=== PATIENT | female | born 1965 | race Caucasian/White ===

== ENCOUNTER 2020-07-29 16:01 | Outpatient (CLI) | payer BC, SELFPAY ==
[2020-07-29 17:03] LABS: SARS-CoV-2 Ag Negative (Negative)
== END 2020-07-29 16:02 | disposition home or self-care (01) ==
LOC: CHSLAB 16:04
PROVIDERS: PCP Internal Medicine; Visit Provider Internal Medicine
DX: R51.9 Headache, unspecified (principal); Z20.828 Contact with and (suspected) exposure to other viral communicable diseases
CPT/HCPCS: 87426

== ENCOUNTER 2020-08-20 15:12 | Outpatient (CLI) | payer BC, SELFPAY ==
--- NOTE | ~2020-08-20 | MM_ITS ---
EXAMINATION: MM screening corrina BI w shun HISTORY: Screening TECHNIQUE: Craniocaudal and mediolateral oblique 3-D tomosynthesis images were obtained and synthetic 2-D images were generated. CAD analysis was submitted and interpreted. COMPARISON: Comparison to multiple prior studies sequentially, with oldest reviewed study dated 04/29. BREAST PARENCHYMAL COMPOSITION: There are scattered areas of fibroglandular density. FINDINGS: There is no evidence of suspicious mass, calcification, or architectural distortion to sugg est malignancy in either breast. There has been no suspicious interval change. IMPRESSION: 1. No mammographic evidence of malignancy. 2. Recommend routine screening mammography in one year. BI-RADS Category 1: Negative Reviewed, dictated and finalized at location A. ED TECH
== END 2020-08-20 15:13 | disposition home or self-care (01) ==
LOC: CHSIMG 15:14
PROVIDERS: PCP Internal Medicine; Visit Provider Obstetrics & Gynecology
DX: Z12.31 Encounter for screening mammogram for malignant neoplasm of breast (principal)
CPT/HCPCS: 77063; 77067

== ENCOUNTER 2020-11-05 15:58 | Outpatient (CLI) | payer BC, SELFPAY | END 2020-11-05 15:59 | disposition home or self-care (01) | LOC: CHSLAB 16:01 | PROVIDERS: PCP Internal Medicine; Visit Provider Specialist | DX: L85.9 Epidermal thickening, unspecified (principal) | CPT/HCPCS: 88305; 88342 ==

== ENCOUNTER 2021-03-27 07:03 | Outpatient (CLI) | payer BC, SELFPAY | END 2021-03-27 07:04 | disposition home or self-care (01) | LOC: CHSLAB 07:06 | PROVIDERS: PCP Internal Medicine; Visit Provider Internal Medicine Nephrology | DX: Z52.4 Kidney donor (principal) | CPT/HCPCS: 36415 ==

== ENCOUNTER 2021-05-30 08:10 | Outpatient (CLI) | payer OTHER, SELFPAY ==
--- NOTE | ~2021-05-30 | XR_ITS ---
EXAMINATION: XR chest 2V DATE: 05/30/2021 08:48 INDICATION: Kidney donor. TECHNIQUE: Frontal and lateral views of the chest were obtained. COMPARISON: Chest 2 views 01/06/2019 FINDINGS: A calcified left lung nodule and calcified left hilar lymph nodes are consistent with old g ranulomatous disease. No pleural effusion or pneumothorax. The heart size is normal. IMPRESSION: 1. No acute cardiopulmonary disease. Reviewed, dictated and finalized at location A.
[2021-05-30 08:32] LABS: Basophils Absolute Auto 0.04 K/mm3 (0.00-0.10); Basophils Percent Auto 0.9 % (0.0-1.0); Eosinophils Absolute Auto 0.11 K/mm3 (0.02-0.50); Eosinophils Percent Auto 2.6 % (1.0-6.0); Hematocrit 42.5 % (35.0-49.0); Hemoglobin 14.2 g/dL (12.0-15.0); Immature Granulocyte Absolute 0.01 K/mm3 (0.00-0.00); Immature Granulocyte Percent A 0.2 % (0.0-0.0); Lymphocytes Absolute Auto 1.95 K/mm3 (1.10-4.50); Lymphocytes Percent Auto 45.2 % (18.0-42.0); Mean Corpuscular HGB Conc 33.4 g/dL (32.0-36.0); Mean Corpuscular Hemoglobin 32.2 pg (27.0-31.0); Mean Corpuscular Volume 96.4 fL (78.0-102.0); Mean Platelet Volume 10.4 fl (9.2-11.8); Monocytes Absolute Auto 0.27 K/mm3 (0.10-0.90); Monocytes Percent Auto 6.3 % (2.0-11.0); Neutrophils Absolute Auto 1.9 K/mm3 (1.7-7.2); Neutrophils Percent Auto 44.8 % (50.0-70.0); Platelet Count Result 215 K/mm3 (150-420); Red Blood Count 4.41 M/mm3 (4.20-5.40); Red Cell Distribution Width 11.6 % (11.6-14.4); White Blood Count 4.3 K/mm3 (4.8-10.8)
[2021-05-30 08:33] LABS: Add Urine Microscopic? YES; Appearance Urine Clear (Clear); Bilirubin Urine Negative (Negative); Blood Urine Negative (Negative); Color Urine Light Yellow (Yellow); Glucose Urine UA Negative (Negative); Ketones Urine Negative (Negative); Leukocyte Esterase Ur 2+ (Negative); Nitrate Urine Negative (Negative); Protein Urine Negative (Negative); Urobilinogen Urine 0.2 mg/dL (0.2-1.0); pH Urine 7.5 (5.0-8.0)
--- NOTE | 2021-05-30 08:35 | ECG_ITS ---
Measurements Intervals [place] Rate: 86 P: 62 FL: 143 QRS: 80 QRSD: 97 T: 38 QT: 346 QTc: 415 Interpretive Statements SINUS RHYTHM INCOMPLETE RIGHT BUNDLE BRANCH BLOCK BORDERLINE ECG Electronically Signed On 05-30-2021 8:42:15 CDT by David Oh D.O.
[2021-05-30 08:49] LABS: Bacteria Urine 1+ /hpf; Partial Thromboplastin Time 26.7 SEC (23.90-30.70); Prothrombin Time 10.5 Seconds (9.50-12.10); RBC Urine None seen /hpf (0-2); Renal Epithelial Cells Urine Few /hpf; Squamous Epithelial Cell Urine Few /hpf (Few); WBC Urine 0-3 /hpf (0-3)
[2021-05-30 08:50] LABS: Pregnancy On Board Control Positive; Urine Pregnancy Test Negative
[2021-05-30 08:52] LABS: Creatinine Urine 51.82 mg/dL (40-278); Microalbumin Urine Random < 13.0 mg/L
[2021-05-30 08:54] LABS: Hemoglobin A1C 5.4 % (<5.7)
[2021-05-30 09:23] LABS: Alanine Aminotransferase 33 U/L (14-59); Albumin Level 4.3 g/dL (3.4-5.0); Alkaline Phosphatase 83 U/L (46-116); Anion Gap 7 mmol/L (8-16); Aspartate Amino Transferase 19 U/L (15-37); Bilirubin,Total 0.5 mg/dL (0.00-1.00); Blood Urea Nitrogen 15 mg/dL (7-18); Calcium 9.1 mg/dL (8.5-10.1); Carbon Dioxide 32 mmol/L (21-32); Chloride 103 mmol/L (98-108); Cholesterol 168 mg/dL (0-200); Estimated Glomerular Filt Rate > 60; GGT 33 U/L (5-55); Glucose 89 mg/dL (70-99); HDL Direct 80 mg/dL (40-60); LDL Cholesterol Calculated 77 mg/dL (<130); Osmolality Calculated 293 mOsm/kg (285-295); Phosphorus 3.6 mg/dL (2.6-4.7); Potassium 4.3 mmol/L (3.5-5.1); Sodium 142 mmol/L (136-145); Total Protein 7.3 g/dL (6.4-8.2); Triglycerides 53 mg/dL (0-150); Uric Acid 3.2 mg/dL (2.6-6.0)
[2021-05-30 09:35] LABS: HIV 1 P24 AG Negative (Negative); HIV 1/2 AB Negative (Negative)
[2021-06-03 20:23] LABS: RPR Screen Non-Reactive (Non-Reactive)
[2021-06-04 09:18] LABS: CMV IgG Antibody >10.00 U/mL (<0.60)
== END 2021-05-30 08:11 | disposition home or self-care (01) ==
LOC: CHSLAB 08:15
PROVIDERS: PCP Internal Medicine; Visit Provider Internal Medicine Nephrology
DX: Z52.4 Kidney donor (principal)
CPT/HCPCS: 36415; 71046; 80053; 80061; 81001; 81025; 82043; 82977; 83036; 84100; 84550; 85025; 85610; 85730; 86592; 86644; 86665; 86703; 86900; 86901; 87077; 87086; 87088; 87186; 93005

== ENCOUNTER 2021-07-23 13:07 | Outpatient (CLI) | payer BC, SELFPAY ==
[2021-07-23 14:12] LABS: Influenza A QL RT-PCR Negative (Negative); Influenza B QL RT-PCR Negative (Negative); SARS-CoV-2 RNA PCR Negative (Negative)
== END 2021-07-23 13:08 | disposition home or self-care (01) ==
LOC: CHSLAB 13:10
PROVIDERS: PCP Internal Medicine; Visit Provider Internal Medicine
DX: J06.9 Acute upper respiratory infection, unspecified (principal); Z20.822 Contact with and (suspected) exposure to COVID-19
CPT/HCPCS: 87502; C9803; U0003; U0005

== ENCOUNTER 2021-07-29 15:02 | Outpatient (CLI) | payer BC, SELFPAY ==
[2021-07-29 15:58] LABS: Influenza A QL RT-PCR Negative (Negative); Influenza B QL RT-PCR Negative (Negative); SARS-CoV-2 RNA PCR Negative (Negative)
== END 2021-07-29 15:03 | disposition home or self-care (01) ==
LOC: CHSLAB 15:05
PROVIDERS: PCP Internal Medicine; Visit Provider Internal Medicine
DX: R50.9 Fever, unspecified (principal); R52 Pain, unspecified; Z20.822 Contact with and (suspected) exposure to COVID-19
CPT/HCPCS: 87502; C9803; U0003; U0005

== ENCOUNTER 2021-08-17 08:32 | Outpatient (CLI) | payer BC, SELFPAY ==
[2021-08-17 09:13] LABS: SARS-CoV-2 Ag Negative (Negative)
[2021-08-17 09:14] LABS: Influenza Control Valid (Valid)
== END 2021-08-17 08:33 | disposition home or self-care (01) ==
PROVIDERS: PCP Internal Medicine; Visit Provider Internal Medicine
DX: Z20.822 Contact with and (suspected) exposure to COVID-19 (principal)
CPT/HCPCS: 87426; 87804; C9803

== ENCOUNTER 2021-09-13 09:01 | Outpatient (CLI) | payer BC, SELFPAY ==
--- NOTE | ~2021-09-13 | MM_ITS ---
EXAMINATION: MM screening corrina BI w shun HISTORY: Screening TECHNIQUE: Craniocaudal and mediolateral oblique 3-D tomosynthesis images were obtained and synthetic 2-D images were generated. CAD analysis was submitted and interpreted. COMPARISON: Comparison to multiple prior studies sequentially, with oldest reviewed study dated 05/09. BREAST PARENCHYMAL COMPOSITION: There are scattered areas of fibroglandular density. FINDINGS: There is no evidence of suspicious mass, calcification, or architectural distortion to sugg est malignancy in either breast. There has been no suspicious interval change. IMPRESSION: 1. No mammographic evidence of malignancy. 2. Recommend routine screening mammography in one year. BI-RADS Category 1: Negative Reviewed, dictated and finalized at location A. OPERATIONS DIRECTOR
== END 2021-09-13 09:02 | disposition home or self-care (01) ==
LOC: ANHIMG 09:02
PROVIDERS: PCP Internal Medicine; Visit Provider Obstetrics & Gynecology
DX: Z12.31 Encounter for screening mammogram for malignant neoplasm of breast (principal)
CPT/HCPCS: 77063; 77067

== ENCOUNTER 2022-01-19 11:02 | Outpatient (CLI) | payer BC, SELFPAY ==
--- NOTE | ~2022-01-19 | US_ITS ---
EXAMINATION: US retroperitoneal comp DATE: 01/19/2022 11:39 INDICATION: Recurrent urinary tract infections TECHNIQUE: Multiple ultrasound grayscale images of the kidneys were obtained. COMPARISON: None. FINDINGS: The right kidney measures 10.2 x 3.3 x 4.3 cm. The left kidney measures 11.0 x 5.0 x 5.4 cm. The kidn eys demonstrate normal echogenicity. 11 mm anechoic cyst at the lower pole of the right kidney. There is no hydronephrosis in either kidney. No stones identified. The bladder is normal with calculated prevoid bladder volume of 829 mL. Borderline thousand check related post void bladder volume of 46 mL . IMPRESSION: 1. 11 mm anechoic cyst at the lower pole of the right kidney. Otherwise normal kidneys without hydro nephrosis. Reviewed, dictated and finalized at location A. IMPRESSION: 1. 11 mm anechoic cyst at the lower pole of the right kidney. Otherwise normal kidneys without hydronephrosis.
== END 2022-01-19 11:03 | disposition home or self-care (01) ==
LOC: CHSIMG 11:04
PROVIDERS: PCP Internal Medicine; Visit Provider Internal Medicine
DX: N39.0 Urinary tract infection, site not specified (principal)
CPT/HCPCS: 76770

== ENCOUNTER 2022-09-14 11:54 | Outpatient (CLI) | payer OTHER, SELFPAY ==
--- NOTE | ~2022-09-14 | DEXA_ITS ---
Bone Density Report Name: ROSA MADISON Age: 57 Sex: Female Ethnicity: White Date of : 1965 Indication: postmenopausal; screening for osteoporosis; height loss; Referring Provider: ELVER HORTON Study: Bone densitometry was performed. Exam Date: September 14, 2022 Accession number: [id number] Bone Density: Region BMD T-score Z-score Classification AP Spine(L1-L4) 1.015 -0.3 0.9 Normal Femoral Neck (Left) 0.755 -0.9 0.3 Normal Total Hip (Left) 0.894 -0.4 0.4 Normal Femoral Neck (Right) 0.734 -1.0 0.1 Normal Total Hip (Right) 0.841 -0.8 0.0 Normal Femoral Neck Mean 0.744 -0.9 0.2 Normal Total Hip Mean 0.868 -0.6 0.2 Normal World Health Organization criteria for BMD impression classify patients as: Normal (T-score at or above -1.0), Osteopenia (T-score between -1.0 and -2.5), or Osteoporosis (T-score at or below -2.5). 10-year Fracture Risk: FRAX not reported because: All T-scores for Spine Total, Hip Total, Femoral Neck at or above -1.0 Clinical Information Provided by Patient: Has used the following medications: Vitamin D Patient maximum height was 69 Menopause Age: 52 Does not regularly consume dairy products Drinks caffeinated beverages Onset of menses at age 15 Number of children 3 Impression: The patient has normal bone mass. Discussion: BONE DENSITY IS ABOVE THE MINIMUM DESIRABLE LEVEL AT ALL SKELETAL SITES TESTED. This patient?s bone mineral density is above the minimum desirable level (T-score -1.0 or better) at all sites measured. The patient should follow a healthful lifestyle (good nutrition with adequate calcium and vitamin D, and appropriate weight-bearing exercise). Follow-Up: Consider repeating this study in 5 years or sooner if there is some new clinical indication. Reported by: Dr. Bernard Lopez on 09/14/2022 12:35:00 PM. Reviewed, dictated and finalized at location ATran TYSON
--- NOTE | ~2022-09-14 | MM_ITS ---
EXAMINATION: MM screening corrina BI w shun HISTORY: Screening mammogram TECHNIQUE: Craniocaudal and mediolateral oblique 3-D tomosynthesis images were obtained and synthetic 2-D images were generated. CAD analysis was submitted and interpreted. COMPARISON: June 13, 2022, August 20, 2020, August 11, 2019 bilateral screening mammogram examina tions BREAST PARENCHYMAL COMPOSITION: There are scattered areas of fibroglandular density. FINDINGS: There is no evidence of suspicious mass, calcification, or architectural distortion to sugg est malignancy in either breast. There has been no suspicious interval change. IMPRESSION: 1. No mammographic evidence of malignancy. 2. Recommend routine screening mammography in one year. BI-RADS Category 1: Negative Reviewed, dictated and finalized at location A. TENDER
== END 2022-09-14 11:55 | disposition home or self-care (01) ==
PROVIDERS: PCP Internal Medicine; Visit Provider Obstetrics & Gynecology
DX: Z12.31 Encounter for screening mammogram for malignant neoplasm of breast (principal); Z78.0 Asymptomatic menopausal state
CPT/HCPCS: 77063; 77067; 77080

== ENCOUNTER 2023-02-10 08:58 | Outpatient (RCR) | payer OTHER, SELFPAY ==
--- NOTE | 2023-02-10 10:04 | PTOPEVAL1 ---
Assessment and note entered by JT File, PT Evaluation Information Diagnosis cervical radiculopathy, cervical pain, headaches Onset 01/18/23 Subjective Information patient reports she is having neck pain and headaches. she reports she has pain that starts at the base of the head and works its way up. she reports migrained medication does not help. she reports she did have tolerance with medication for stress headaches for a while, but this year that has changed. she reports her symptoms has been present since 2019. she reports she is no longer going to pain management. she reports she was unable to get an MRI of the neck without PT. she reports she has increased headache symptoms waking up in the mornings. she reports she feels like she has a stiff neck all the time. she reports she has increased headache symptoms with noise and bending the head forward when she has the headache already. she reports she does have pain down the L arm and into the thumb and index finger. she reports numbness is always there. symptoms are increased with increased use of the L UE and lifting. she reports she has not had any imaging since 2019. Reported Pain Level Pain Score 5,0: Self Report Assessment PT Clinical Summary mrs. felder is a 57 yo woman who presents to skilled PT with headaches, neck pain, and L UE radicular symptoms. she presents today with cervicogeneic headaches and L C6 cervical radiculopathy. she presents with no loss of strength of the L UE compared to the R UE, but poor postural awareness, mm tightness, and palpable tenderness. she would benefit from continued skilled PT to reduce her symptoms, decrease pain, and return to prior level functional activities/sleeping patterns without symptoms to improve quality of life. Plan of Care Interventions Electrical Stimulation,Hot Pack/Cold Pack,Manual Therapy,Mechanical Traction,Neuro Re-education, Patient/Caregiver Educati,Therapeutic Activities, Therapeutic Exercise PT Services Indicated Yes Treatment Frequency and 3x weekly for 12 visits Duration These treatments will address the objective and functional deficits as defined above. The patient will be advanced safely and appropriately in order for the patient to progress towards his/her prior level of function. Additional exercises will be introduced and as well as a comprehensive home exercise program upon discharge, if nee
--- NOTE | 2023-02-10 10:05 | OPREHPOC ---
Outpatient Therapy Plan of Care This is a Multidisciplinary Plan of Care that may contain components documented by all disciplines (PT, OT, and ST.) PT Problem 1 PT Problem #1 Knowledge Deficit PT Goal 1 Goal 1. independent and compliant with HEP to improve tolerance for continued skilled PT and exercsies Target Visit 6 PT Problem 2 PT Problem #2 Pain PT Goal 1 Goal 1. decrease pain in the neck to 3/10 or less to improve quality of life and sleeping habits 2. reduce frequency of headaches to 2x a week or less Target Visit 12 PT Problem 3 PT Problem #3 Impaired Range of Motion PT Goal 1 Goal 1. improve arom cervical sidebending to 40 degrees bilaterally 2. improve arom cervical rotation to 70 degrees bilaterally Target Visit 12 PT Problem 4 PT Problem #4 Impaired Functional Mobil PT Goal 1 Goal 1. no tightness or pain with palpation of the cervical suboccipitals 2. patient to sleep through the night 5 nights a week 3. patient to report reduction of all L UE symptoms 4. patient to display improved standing posture noting reduction of scapular protraction/rounded shoulders Target Visit 12
--- NOTE | 2023-03-16 09:33 | OPREHPOC ---
Outpatient Therapy Plan of Care This is a Multidisciplinary Plan of Care that may contain components documented by all disciplines (PT, OT, and ST.) PT Problem 1 PT Problem #1 Knowledge Deficit PT Goal 1 Goal 1. independent and compliant with HEP to improve tolerance for continued skilled PT and exercsies Target Visit 6 Progress Met Comment continue progressing exercises PT Problem 2 PT Problem #2 Pain PT Goal 1 Goal 1. decrease pain in the neck to 3/10 or less to improve quality of life and sleeping habits 2. reduce frequency of headaches to 2x a week or less Target Visit 12 Progress Not Met Comment continue to address PT Problem 3 PT Problem #3 Impaired Range of Motion PT Goal 1 Goal 1. improve arom cervical sidebending to 40 degrees bilaterally 2. improve arom cervical rotation to 70 degrees bilaterally Target Visit 12 Progress Not Met Comment continue to address PT Problem 4 PT Problem #4 Impaired Functional Mobil PT Goal 1 Goal 1. no tightness or pain with palpation of the cervical suboccipitals 2. patient to sleep through the night 5 nights a week 3. patient to report reduction of all L UE symptoms 4. patient to display improved standing posture noting reduction of scapular protraction/rounded shoulders Target Visit 12 Progress Partially Met Comment continue to address
--- NOTE | 2023-03-16 09:33 | PTOPREEVAL ---
Assessment and note entered by JT File, PT Evaluation Information Assessment Status Re-evaluation Diagnosis cervical radiculopathy, cervical pain, headaches Onset 01/18/23 Subjective Information Patient reports increased pain since last week in her neck and more frequent headaches. She notes she received botox last to treat her headaches, but has since had more frequent and intense headaches. Over the weekend she felt nauseous and fatigued, which patient believes is a side effect of the botox. She reports she did not have any fever present and has not called her doctor since experiencing these symptoms. She reports occasional numbness/tingling still present in her L hand, but that the frequency of this has decreased since starting PT. Patient also notes improved ability to lift weight with her UEs since initiating PT. Reported Pain Level Pain Score 5,4: Self Report Assessment PT Clinical Summary Mrs. Garzon has attended 12 sessions of skilled PT to address neck pain and headaches. She demonstrated improvements in cervical flexion and extension ROM, but continues to show limitations in cervical rotation and lateral flexion. Patient' s NDI score improved 12% from initial assessment. Patient continues to report headaches and neck pain that have recently increased in frequency and intensity since receiving botox treatment last week. Plan to work on reducing modalities during PT to focus treatments on reaching goals of cervical ROM, postural exercises, and UE strengthening. Plan of Care Interventions Electrical Stimulation,Hot Pack/Cold Pack,Manual Therapy,Mechanical Traction,Neuro Re-education, Patient/Caregiver Educati,Therapeutic Activities, Therapeutic Exercise PT Services Indicated Yes Treatment Frequency and 2x/week for additional 4 visits Duration These treatments will address the objective and functional deficits as defined above. The patient will be advanced safely and appropriately in order for the patient to progress towards his/her prior level of function. Additional exercises will be introduced and as well as a comprehensive home exercise program upon discharge, if needed, ?to ensure carryover of functional gains achieved in the clinic. This treatment plan has been reviewed and agreement upon by the patient.
--- NOTE | 2023-03-30 08:45 | OPREHPOC ---
Outpatient Therapy Plan of Care This is a Multidisciplinary Plan of Care that may contain components documented by all disciplines (PT, OT, and ST.) PT Problem 1 PT Problem #1 Knowledge Deficit PT Goal 1 Goal 1. independent and compliant with HEP to improve tolerance for continued skilled PT and exercsies Target Visit 6 Progress Met Comment continue progressing exercises PT Problem 2 PT Problem #2 Pain PT Goal 1 Goal 1. decrease pain in the neck to 3/10 or less to improve quality of life and sleeping habits 2. reduce frequency of headaches to 2x a week or less Target Visit 12 Progress Partially Met Comment goal #2 met, goal #1 partially met PT Problem 3 PT Problem #3 Impaired Range of Motion PT Goal 1 Goal 1. improve arom cervical sidebending to 40 degrees bilaterally 2. improve arom cervical rotation to 70 degrees bilaterally Target Visit 12 Progress Partially Met Comment improved ROM from initial assessment PT Problem 4 PT Problem #4 Impaired Functional Mobil PT Goal 1 Goal 1. no tightness or pain with palpation of the cervical suboccipitals 2. patient to sleep through the night 5 nights a week 3. patient to report reduction of all L UE symptoms 4. patient to display improved standing posture noting reduction of scapular protraction/rounded shoulders Target Visit 12 Progress Partially Met Comment continue to address
--- NOTE | 2023-03-30 08:45 | PTOPDC ---
Assessment and note entered by JT File, PT Evaluation Information Assessment Status Re-evaluation Diagnosis cervical radiculopathy, cervical pain, headaches Onset 01/18/23 Subjective Information Patient reports only slight pain present in her neck this morning, noting it feels more like stiffness than pain. She notes that the neck maintains 3-4/10 discomfort throughout the past week, getting no worse or better than this. She states she has only had one headache in the past week. Patient reports increased ability to sleep through the nights. She states she has gotten a home TENS unit to treat her neck pain with. Reported Pain Level Pain Score 0,3: Self Report Assessment PT Clinical Summary Mrs. Garzon has attended 16 sessions of skilled PT to address neck pain and headaches. She demonstrates improvements in cervical ROM and UE strength this date. She reports improved ability to sleep and lift heavy weights. She currently has 16% functional decline as assessed by the NDI, improving 6% from last assessment. Patient notes decreased frequency and intensity of headaches since initiating PT. At this time pt is to be discharged with independent HEP. Plan of Care PT Services Indicated No
== END 2023-03-30 10:18 | disposition home or self-care (01) ==
LOC: CHSPT 08:58
PROVIDERS: Visit Provider Nurse Practitioner Family
DX: M54.12 Radiculopathy, cervical region (principal)
CPT/HCPCS: 97012; 97014; 97110; 97140; 97161; G0283

== ENCOUNTER → 2023-04-17 09:00 | Outpatient (CLI) | payer OTHER, SELFPAY ==
--- NOTE | ~2023-04-17 | MR_ITS ---
MRI of the cervical spine Clinical History: Radiculopathy Technique: Axial T2-weighted and gradient images, and sagittal T1-weighted, T2-weighted, and STIR maryana ges were acquired. COMPARISON: 04/29/2019 Findings: There is no fracture or subluxation of the cervical spine. No suspicious bone marrow signal abnormality seen. There is straightening of the normal cervical lordosis. At C2-C3, there is no disc bulge or herniation. No spinal canal stenosis or cord compression. There i s mild left facet arthropathy. No neural foraminal narrowing evident. At C3-C4, there is minimal osteophyte formation at the left paracentral to foraminal region. No centr al canal stenosis or cord compression. Bilateral neural foramina are preserved. At C4-C5, there is minimal disc osteophyte complex with right-sided facet arthropathy. No central can al stenosis, cord compression, or definite neural foraminal narrowing. At C5-C6, there is minimal disc osteophyte complex with mild bilateral facet arthropathy. No spinal c anal stenosis or cord compression. There is mild bilateral neural foraminal narrowing. At C6-C7, there is minimal disc osteophyte complexes. No spinal canal stenosis, cord compression, or right neural foraminal narrowing. Probable minimal left neural foraminal narrowing. No abnormal signal seen in the spinal cord. Paravertebral soft tissues are unremarkable. Impression: Mild degenerative spondylosis, as above. Reviewed, dictated and finalized at [facility]. Impression: Mild degenerative spondylosis, as above.
== END ==
PROVIDERS: PCP Internal Medicine; Visit Provider Nurse Practitioner Family
DX: M47.22 Other spondylosis with radiculopathy, cervical region (principal)
CPT/HCPCS: 72141

== ENCOUNTER 2023-05-06 14:17 | Outpatient (CLI) | payer OTHER, SELFPAY ==
[2023-05-06 14:30] LABS: Basophils Absolute Auto 0.04 K/mm3 (0.00-0.10); Basophils Percent Auto 0.7 % (0.0-1.0); Eosinophils Absolute Auto 0.08 K/mm3 (0.02-0.50); Eosinophils Percent Auto 1.4 % (1.0-6.0); Hematocrit 41.1 % (35.0-49.0); Hemoglobin 13.5 g/dL (12.0-15.0); Immature Granulocyte Absolute 0.04 K/mm3 (0.00-0.00); Immature Granulocyte Percent A 0.7 % (0.0-0.0); Lymphocytes Absolute Auto 1.85 K/mm3 (1.10-4.50); Lymphocytes Percent Auto 31.6 % (18.0-42.0); Mean Corpuscular HGB Conc 32.8 g/dL (32.0-36.0); Mean Corpuscular Hemoglobin 32.5 pg (27.0-31.0); Mean Corpuscular Volume 98.8 fL (78.0-102.0); Mean Platelet Volume 10.5 fl (9.2-11.8); Monocytes Absolute Auto 0.39 K/mm3 (0.10-0.90); Monocytes Percent Auto 6.7 % (2.0-11.0); Neutrophils Absolute Auto 3.5 K/mm3 (1.7-7.2); Neutrophils Percent Auto 58.9 % (50.0-70.0); Platelet Count Result 213 K/mm3 (150-420); Red Blood Count 4.16 M/mm3 (4.20-5.40); Red Cell Distribution Width 11.7 % (11.6-14.4); White Blood Count 5.9 K/mm3 (4.8-10.8)
[2023-05-06 15:09] LABS: Strep Group A RT-PCR NOT DETECTED (Negative)
== END 2023-05-06 14:18 | disposition home or self-care (01) ==
LOC: CHSLAB 14:19
PROVIDERS: PCP Internal Medicine; Visit Provider Internal Medicine
DX: J03.90 Acute tonsillitis, unspecified (principal)
CPT/HCPCS: 36415; 85025; 87651

== ENCOUNTER 2023-09-04 07:33 | Outpatient (CLI) | payer OTHER, SELFPAY ==
--- NOTE | ~2023-09-04 | MR_ITS ---
EXAMINATION: MR brain/brain stem wo/w con DATE: 09/04/2023 09:03 INDICATION: CHRONIC MIGRAINE W/OUT AURA SINCE JANUARY 2023 TECHNIQUE: Magnetic resonance imaging (MRI) of the brain and brainstem was performed without and with 15 mL MultiHance intravenous contrast. Sequences included sagittal T1 FSE; axial diffusion, ADC map, pre and post T1 FSE, T2 ALAN, 3-D T1 GRE; and coronal T1 FSE post. COMPARISON: 11/16/2018. FINDINGS: No abnormal restricted diffusion to suggest acute ischemic infarct. No MRI evidence of hemorrhage or extra-axial collection. No suspicious foci of susceptibility to suggest prior intraparenchymal hemorr tom. Normal white matter signal. No abnormal enhancement. No evidence of advanced or lobar predomina nt parenchymal volume loss. The basilar cisterns are patent. Flow voids are preserved. Paranasal sinu ses are within normal limits. Globes and orbital contents are within normal limits. IMPRESSION: Normal MR brain findings. Reviewed, dictated and finalized at location K. ER IMPRESSION: Normal MR brain findings.
== END 2023-09-04 07:34 | disposition home or self-care (01) ==
PROVIDERS: PCP Internal Medicine
DX: G43.709 Chronic migraine without aura, not intractable, without status migrainosus (principal)
CPT/HCPCS: 70553; A9577

== ENCOUNTER 2023-09-16 08:09 | Outpatient (CLI) | payer OTHER, SELFPAY ==
--- NOTE | ~2023-09-16 | MM_ITS ---
EXAMINATION: MM screening corrina BI w shun HISTORY: Screening mammogram TECHNIQUE: Craniocaudal and mediolateral oblique 3-D tomosynthesis images were obtained and synthetic 2-D images were generated. CAD analysis was submitted and interpreted. COMPARISON: September 14, 2022, September 13, 2021, August 20, 2020 bilateral screening mammogram examin ations BREAST PARENCHYMAL COMPOSITION: There are scattered areas of fibroglandular density. FINDINGS: There is no evidence of suspicious mass, calcification, or architectural distortion to sugg est malignancy in either breast. There has been no suspicious interval change. IMPRESSION: 1. No mammographic evidence of malignancy. 2. Recommend routine screening mammography in one year. BI-RADS Category 1: Negative Reviewed, dictated and finalized at location A. ING MACHINE TENDER
== END 2023-09-16 08:10 | disposition home or self-care (01) ==
PROVIDERS: PCP Internal Medicine; Visit Provider Obstetrics & Gynecology
DX: Z12.31 Encounter for screening mammogram for malignant neoplasm of breast (principal)
CPT/HCPCS: 77063; 77067

== ENCOUNTER 2023-11-15 11:54 | Outpatient (CLI) | payer OTHER, SELFPAY ==
--- NOTE | ~2023-11-15 | XR_ITS ---
Corrected Report Correction to Ordering Provider 11/15/2023 Guy This report was recreated on 11/15/2023. Original report was signed by Hernán Spicer M.D. on 11/15/2023 12:30 CDT. Left Knee Technique: AP, lateral, and sunrise views were obtained. Clinical History: Pain Findings: No fracture or dislocation is seen. Osseous alignment is anatomic. Joint spaces are preserved without degenerative or erosive change. Soft tissues are unremarkable. No joint effusion is seen. Impression: Unremarkable left knee radiographs. Reviewed, dictated and finalized at location M. MTDD Impression: Unremarkable left knee radiographs.
== END 2023-11-15 11:55 ==
PROVIDERS: PCP Internal Medicine; Visit Provider Pain Medicine Pain Medicine
DX: M25.562 Pain in left knee (principal)
CPT/HCPCS: 73562

== ENCOUNTER 2024-01-31 08:57 | Outpatient (CLI) | payer OTHER, SELFPAY ==
--- NOTE | ~2024-01-31 | MR_ITS ---
EXAMINATION: MR knee LT wo con DATE: 01/31/2024 09:30 INDICATION: Left knee pain TECHNIQUE: Magnetic resonance imaging (MRI) of the left knee was performed without intravenous contra st. Sequences included coronal PD-weighted FSE, coronal PD-weighted FS FSE, sagittal T2-weighted FSE , sagittal PD-weighted FS FSE and axial PD weighted fat saturated FSE. COMPARISON: None. FINDINGS: Medial compartment: Medial meniscus is normal. Articular cartilage is normal. Lateral compartment: Lateral meniscal tear with longitudinal tear plane extending obliquely from the more peripheral super ior articular surface to the more central inferior articular surface of the anterior horn which appea rs to extend to the inner free edge at the anterior body. Small partial-thickness chondral ulceration without degenerative subchondral changes at the central aspect of the anterior weightbearing lateral femoral condyle. Remaining articular cartilage is normal. Patellofemoral compartment: Deep chondral ulceration with small focus of underlying edema-like signal change at the junction of t he cephalad and mid thirds of the patellar apical ridge. Deep chondral ulceration with underlying cor tical irregularity and subarticular edema-like signal change at the central aspect of the medial troc hlea. Shallow chondral ulceration with underlying heterogeneous cartilage signal at the central to in ferior aspect of the trochlear groove. Ligaments and tendons: Anterior and posterior cruciate ligaments are normal. The medial collateral ligament and fibular siddharth ateral ligament complex are normal. Small enthesophyte at the patellar insertion of the distal nils ceps tendon. The extensor mechanism is otherwise normal. The visualized medial and lateral hamstring tendons as well as the iliotibial band are normal. Fluid: Physiologic amount of fluid in the joint space. No loose osteochondral bodies identified. Small Jacob 's cyst. Osseous/other: Bone alignment is normal. No fracture or pathologic marrow replacing process. IMPRESSION: 1. Tear likely complex at the anterior horn of the lateral meniscus. 2. 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 3. Small Jacob's cyst. Reviewed, dictated and finalized at location B. IMPRESSION: 1. Tear likely complex at the anterior horn of the lateral meniscus. 2. Mild osteoarthritis with small regions of high-grade patellofemoral chondrom alacia and small focus of moderate grade chondromalacia in the lateral compartm ent along the anterior weightbearing lateral femoral condyle. 3. Small Jacob's cyst.
== END 2024-01-31 08:58 ==
LOC: MICIMG 08:58
PROVIDERS: PCP Internal Medicine; Visit Provider Internal Medicine
DX: S83.282A Other tear of lateral meniscus, current injury, left knee, initial encounter (principal); M17.12 Unilateral primary osteoarthritis, left knee; M94.262 Chondromalacia, left knee; M71.22 Synovial cyst of popliteal space [Baker], left knee; X58.XXXA Exposure to other specified factors, initial encounter
CPT/HCPCS: 73721

== ENCOUNTER 2024-03-22 16:43 | Outpatient (RCR) | payer OTHER, SELFPAY ==
--- NOTE | 2024-03-22 17:29 | OPREHPOC ---
Outpatient Therapy Plan of Care This is a Multidisciplinary Plan of Care that may contain components documented by all disciplines (PT, OT, and ST.) PT Problem 1 PT Problem #1 Knowledge Deficit PT Goal 1 Goal 1. independent and compliant with HEP Target Visit 4 PT Problem 2 PT Problem #2 Pain PT Goal 1 Goal 1. no more than 2/10 pain at worst in the L knee. Target Visit 8 PT Problem 3 PT Problem #3 Impaired Strength PT Goal 1 Goal 1. 5/5 L knee extension 2. 4+/5 or better bilateral hip strength overall Target Visit 8 PT Problem 4 PT Problem #4 Impaired Functional Mobil PT Goal 1 Goal 1. LEFS to display 20% or less functional deficits 2. patient to ambulate up and down steps with reciprocal mechanics without increased pain 3. patient to ambulate 10 minutes without increased pain Target Visit 8
--- NOTE | 2024-03-22 17:29 | PTOPEVAL1 ---
Assessment and note entered by JT File, PT Evaluation Information Assessment Status Evaluation ICD-10 Condition Codes (PT) Pain in left knee M25.562 Onset 03/17/24 Subjective Information patient reports back in september she began have pain on the outside of the L knee cap. she reports she held off on exercises at home, and it did not get any better. she had an xray which didnt show much, but then she had an MRI which showed a torn meniscus. she reports she did see an ortho who believes PT is her best option. she reports she has increased pain with stairs, walking a lot, and getting on and off the floor. she reports she had an injection to the L knee last wednesday, and has felt much better since. Reported Pain Level Pain Score 1: Self Report Assessment PT Clinical Summary mrs. felder is a 58 yo woman who presents to skilled PT services for evaluation and treatment of L knee pain. she presents today with deficits in L knee extension strength, bilateral hip strength, and positive testing for meniscus injury . she would benefit from continued skilled PT to improve her objective/functional deficits and progress towards a return to her prior level functional activity performance/quality of life. Plan of Care Interventions Gait Training,Manual Therapy,Neuro Re-education, Patient/Caregiver Educati,Therapeutic Activities, Therapeutic Exercise PT Services Indicated Yes Treatment Frequency and 2x weekly for 8 visits Duration These treatments will address the objective and functional deficits as defined above. The patient will be advanced safely and appropriately in order for the patient to progress towards his/her prior level of function. Additional exercises will be introduced and as well as a comprehensive home exercise program upon discharge, if needed, ?to ensure carryover of functional gains achieved in the clinic. This treatment plan has been reviewed and agreement upon by the patient.
--- NOTE | 2024-04-12 08:55 | PCPTNOTE ---
Pt cancelled today's appointment and no reason given. -Nataly Kelly, PT
--- NOTE | 2024-04-24 09:49 | PCPTNOTE ---
pt cancelled today due to too much pain with activity this weekend.
== END 2024-06-20 23:59 | disposition home or self-care (01) ==
LOC: CHSPT 16:43
PROVIDERS: Visit Provider Orthopaedic Surgery
DX: M17.10 Unilateral primary osteoarthritis, unspecified knee (principal)
CPT/HCPCS: 97110; 97112; 97150; 97161

== ENCOUNTER 2024-09-18 12:54 | Outpatient (CLI) | payer OTHER, SELFPAY ==
--- NOTE | ~2024-09-18 | MM_ITS ---
EXAMINATION: MM screening corrina BI w shun HISTORY: Screening TECHNIQUE: Craniocaudal and mediolateral oblique 3-D tomosynthesis images were obtained and synthetic 2-D images were generated. CAD analysis was submitted and interpreted. COMPARISON: Comparison to multiple prior studies sequentially, with oldest reviewed study dated 09/2018. BREAST PARENCHYMAL COMPOSITION: Not dense: There are scattered areas of fibroglandular density. FINDINGS: There is no evidence of suspicious mass, calcification, or architectural distortion to sugg est malignancy in either breast. There has been no suspicious interval change. IMPRESSION: 1. No mammographic evidence of malignancy. 2. Recommend routine screening mammography in one year. BI-RADS Category 1: Negative Reviewed, dictated and finalized at location B. AXIAL REACTOR TECHNICIAN
--- OUTSIDE RECORDS SUMMARY | 2024-09-18 13:06 | XMS_ITS | Patient Health Record ---
Author Organization [facility] Address [address] [place] [address] Care Team Providers Care Cold Molding Press Operator Name Role Phone Gary Josie Primary Care Provider Dr. Deangelo Cox Unavailable [phone] Chanel Camargo Unavailable Unavailable [employer], Provider Unavailable Unavailab Hannah Mcmahan Unavailable [phone] Allergies No Known Allergies Reason For Referral Reason Request for cervical facet blocks/ablation Diagnosis 1 Other cervical disc degeneration, unspecified cervical region (M50.30) Diagnosis 2 Cervicogenic headach e (G44.86) Diagnosis 3 Unspecified inflamma tory spondylopathy, cervical region (M46.92) Referral Organization [facility] Referring Provider First Name Deangelo Referring Provider Last Name Ly Referring Provider Speciality Neurology Referred Provider Phyllis Trimble Referral Priority Routine Medications Medication SIG (Take, Route, Frequency, Duration) Notes Start Date End Date Status LORAZEPAM 1 mg for 30 Days Not -Taking Vitamin C 500 MG 1 tab(s) orally once a day Active MIRALAX - as directed orally once a day Not-Taking Lexapro 10 MG 1 tab(s) orally once a day Active PANTOPRAZOLE Not-Bruce ing VITAMIN C 500 mg 1 tab(s) orally once a day Not-Taking B-12 1000 MCG 1 tab(s) orally once a day Active Ajovy 225 MG/1.5ML 1 injection as directed Subcutaneous once a month for 30 days 08/24/2024 Active Estradiol-Norethin drone Acet 1-0.5 MG 1 tab(s) orally once a day Active LEXAPRO 10 mg 1 tab(s) orally once a day Not-Taking MAGNESIUM MINERAL SUPPORT 500mg *Please review for potential replacement for e-prescription and drug interaction check* Active VITAMIN B12 1000 mcg 1 tab(s) orally once a day Not-Taking Vitamin B-2 400mg *Please review and pick correct strength-formulat ion from [employer] options. If intended option is not shown, discontinue and re-order from Quick Search* Active ESTRADIOL-NORETHIN DRONE 1 mg-0.5 mg 1 tab(s) orally once a day Not-Taking Dosusvedtm-UAIU-Vh ffeine 50-325-40 MG 1 tablet Orally twice daily, for 30 days As needed 08/25/2024 Active ACETAMINOPHEN/BUTA LBITAL/CAFFEINE 325 mg-50 mg-40 mg 1 pill po twice daily, for 30 days As needed for migraine, limit to 3 days/week Active VITAMIN B2 400mg Not-Takin g Vitamin D3 25 mcg 1 tab(s) orally once a day Active Celecoxib 100 MG Oral for 30 Days Active LORazepam 1 MG for 30 Days Not -Taking MiraLax - DIRECTED ORALLY ONCE A DAY *Please review and pick correct strength-formulat ion from [employer] options. If intended option is not shown, discontinue and re-order from Quick Search* Not-Taking AJOVY AUTOINJECTOR VFRM 225 MG/1.5 ML 1 INJECTION SUBCUTANEOUSLY ONCE A MONTH *Please review for potential replacement for e-prescription and drug interaction check* 08/19/2023 Active Pantoprazole Sodium *Please review and pick correct strength-formulat ion from [employer] options. If intended option is not shown, discontinue and re-order from Quick Search* Not-Taking Social History Tobacco Use: Social History Observation Description Date Details (start date - stop date) Never Smoker NA - NA Smoking Smart Form: Question Answer Notes Are you a: never smoker Additional Findings:Tobacco Non-User Ex-cigar sm oker Problems Problem Type SNOMED Code ICD Code Onset Dates Problem Status W/U Status Risk Notes Problem Restless legs syndrome (36992997) Restless legs syndrome (G25.81) Active confirmed Problem Chronic migraine without aura, non-refractory (disorder) (543653992234488) Migraine without aura, not intractable, without status migrainosus (G43.009) Active confirmed Problem Migraine with aura (9376460) Migraine with aura, not intractable, without status migrainosus (G43.109) Active confirmed Problem Chronic migraine without aura, non-intractable (178177143585213) Chronic migraine without aura, not intractable, without status migrainosus (G43.709) Active confirmed Problem Insomnia (279227233) Insomnia, unspecified (G47.00) Active confirmed Problem Unspecified inflammatory spondylopathy, cervical region (M46.92) Active confirmed Problem Degeneration of cervical intervertebral disc (30436400) Other cervical disc degeneration, unspecified cervical region (M50.30) Active confirmed Problem Occipital neuralgia (36072582) Occipital neuralgia (M54.81) Active confirmed Problem Menopause (610465209) Menopausal and female climacteric states (N95.1) Active confirmed Problem Snoring (00617022) Snoring (R06.83) Active conf irmed Problem Chronic fatigue syndrome (disorder) (30687273) Chronic fatigue, unspecified (R53.82) Active confirmed Problem Muscle pain (49980243) Myalgia, unspecified site (M79.10) Active confirmed Problem Cervicogenic headache (767026877) Cervicogenic headache (G44.86) Active confirmed Vital Signs Respiratory Rate 18 /min 08/24/2024 Blood pressure diastolic 77 mm Hg 08/24/2024 Oximetry 99 % 08/24/2024 Height 68 in 08/24/2024 Blood pressure systolic 116 mm Hg 08/24/2024 Weight 166 lbs 08/24/2024 BMI 25.24 kg/m2 08/24/2024 Encounters Encounter Location Date Provider Diagnosis [address] [address] 01/22/2024 Provider [facility] [place] ([address]) [address] [place] [address] 10/14/2023 Deangelo Modi Migraine without aura, not intractable, without status migrainosus G43.009 ; Cervicogenic headache G44.86 ; Other cervical disc degeneration, unspecified cervical region M50.30 and Myalgia, unspecified site M79.10 [facility] [address] [address] 08/24/2024 Hannah Schneider Migraine without aura, not intractable, without status migrainosus G43.009 ; Cervicogenic headache G44.86 ; Other cervical disc degeneration, unspecified cervical region M50.30 and Myalgia, unspecified site M79.10 [facility] [address] [place] [address] 10/27/2023 Deangelo Modi [address] [address] 11/01/2023 Deangelo Modi Migraine without aura, not intractable, without status migrainosus G43.[address] [address] 03/22/2024 Deangelo Modi Migraine without aura, not intractable, without status migrainosus G43.[address] [address] 03/27/2024 Deangelo Modi Migraine without aura, not intractable, without status migrainosus G43.[address] [address] 07/27/2024 Deangelo Modi [address] [address] 08/24/2024 Deangelo Modi Migraine without aura, not intractable, without status migrainosus G43.[address] [address] 08/30/2024 Deangel[address] Aguilarer [address] [address] 08/30/2024 Deangelo Modi Assessments Encounter Date Diagnosis (ICD Code) Assessment Notes Treatment Notes Treatment Clinical Notes Section Notes 10/14/2023 Migraine without aura, not intractable, without status migrainosus (ICD-10 - G43.009) -Abortive treatment plan: Fioricet -Preventive treatment plan: Ajovy -Educated the patient on migraine lifestyle recommendations. I recommended the following measures: avoid known triggers of migraine, drink > 100 fluid ounces of non-caffeinated fluid daily, limit caffeine to 2 servings/day, sleep 7-8 hours/night and address any sleep concerns with us and report symptoms of snoring or fatigue; healthy management of stress; avoid treating headaches more than 2 days/week with abortive medication unless approved in treatment plan; can take Riboflavin 400 mg and Magnesium 500 mg daily as supplements; keep scheduled follow-up appointments 10/14/2023 Cervicogenic headache (ICD-10 - G44.86) Assess effect of injections today. If adequate effect consider referral back to Pain Management for cervical facet injections 11/01/2023 Migraine without aura, not intractable, without status migrainosus (ICD-10 - G43.009) 03/22/2024 Migraine without aura, not intractable, without status migrainosus (ICD-10 - G43.009) 03/27/2024 Migraine without aura, not intractable, without status migrainosus (ICD-10 - G43.009) 08/24/2024 Migraine without aura, not intractable, without status migrainosus (ICD-10 - G43.009) -Abortive treatment plan: Continue Fioricet. Gave sample of Zavzpret. -Preventive treatment plan: Restart Ajovy 225 mg. Gave sample of Ajovy in clinic Lot [id number]. Exp January 2025.-Educated the patient on migraine lifestyle recommendations. I recommended the following measures: avoid known triggers of migraine, drink > 100 fluid ounces of non-caffeinated fluid daily, limit caffeine to 2 servings/day, sleep 7-8 hours/night and address any sleep concerns with us and report symptoms of snoring or fatigue; healthy management of stress; avoid treating headaches more than 2 days/week with abortive medication unless approved in treatment plan; can take Riboflavin 400 mg and Magnesium 500 mg daily as supplements; keep scheduled follow-up appointments 08/24/2024 Cervicogenic headache (ICD-10 - G44.86) Follow up with pain management s/p cervical ablation on 08/15/24. 08/24/2024 Migraine without aura, not intractable, without status migrainosus (ICD-10 - G43.009) 08/24/2024 Other cervical disc degeneration, unspecified cervical region (ICD-10 - M50.30) Follow up with pain management s/p cervical ablation on 08/15/24. 10/14/2023 Other cervical disc degeneration, unspecified cervical region (ICD-10 - M50.30) 10/14/2023 Myalgia, unspecified site (ICD-10 - M79.10) Assess effect of injections today 08/24/2024 Myalgia, unspecified site (ICD-10 - M79.10) Follow up with pain management s/p cervical ablation on 08/15/24. Plan Of Treatment Pending Test Test Name Order Date MRI : Brain (with and without gadolinium ) 08/19/2023 Insurance Providers Payer Name Payer Address Payer Phone Subscriber Number Group Number Insured Name Patient Relationship to Insured Coverage Start Date Coverage End Date [employer] Choice POS II [address] [place] [address] [id number] Sharonda Garzon Self - patient is the insured 2 Medical (General) History Medical History History ICD Code Gastro-esophageal reflux disease without esophagitis K21.9 Dysthymic disorder F34.1 Migraine Cervical DDD Surgical History Surgery Date(Month/Year) cholecystectomy 2007
--- OUTSIDE RECORDS SUMMARY | 2024-09-18 13:06 | XMS_ITS ---
Author Organization [facility] Address [address] [place] [address] Care Team Providers Care Licensing Court Magistrate Name Role Phone Josie Vega Primary Care Provider Dr. Deangelo Cox Unavailable [phone] Chanel Camargo Unavailable Unavailable REASON FOR VISIT Soledad SALGUERO Renewal Approved 08/30/2024-08/30/2025 Encounters Encounter Location Date Provider Diagnosis [facility] [address] [place] [address] 08/30/2024 Deangelo Modi Plan Of Treatment No Information Progress Notes * Mohamud GARZONOB:1965 (59 yo F)Acc No.[id number]:08/30/2024 Patient: Leatha Sharonda HUMPHREY :1965 A ge:59 Y S ex:Female Address:[address] [place] [address] * true * Date: Generated for Mikei ng/Fatitig/eTransmitting on: 0 09/18/2024 01:06 PM GRADES 1 THRU 6 HOME TEACHER
--- OUTSIDE RECORDS SUMMARY | 2024-09-18 13:06 | XMS_ITS ---
Author Organization [facility] Address [address] [place] [address] Care Team Providers Care Automotive Tire Worker Name Role Phone Josie Vega Primary Care Provider Dr. Deangelo Cox Unavailable [phone] Chanel Camargo Unavailable Unavailable REASON FOR VISIT Message Encounters Encounter Location Date Provider Diagnosis [facility] [address] [place] [address] 08/30/2024 Deangelo Modi Plan Of Treatment No Information Progress Notes * Mohamud GARZONOB:1965 (59 yo F)Acc No.[id number]:08/30/2024 Patient: Leatha HUMPHREY Sharonda :1965 A ge:59 Y S ex:Female Address:[address] [place] [address] * true * Date: Generated for Printi ng/Fatitig/eTransmitting on: 0 09/18/2024 01:06 PM CADD DRAFTER
--- OUTSIDE RECORDS SUMMARY | 2024-09-18 13:06 | XMS_ITS ---
Author Organization [facility] Address [address] [place] [address] Care Team Providers Care Last Dipper Name Role Phone Josie Vega Primary Care Provider Dr. Deangelo Cox Unavailable [phone] Chanel Camargo Unavailable Unavailable REASON FOR VISIT Refills Medications Medication SIG (Take, Route, Frequency, Duration) Notes Start Date End Date Status Crbisjwmdl-OXRT-Cvtqwiag 50-325-40 MG 1 tablet Orally twice daily, for 30 days As needed 08/25/2024 Active Encounters Encounter Location Date Provider Diagnosis [address] [address] 08/24/2024 Deangelo Modi Migraine without a ura, not intractable, without status migrainosus G43.009 Assessments Encounter Date Diagnosis (ICD Code) Assessment Notes Treatment Notes Treatment Clinical Notes Section Notes 08/24/2024 Migraine without aura, not intractable, without status migrainosus (ICD-10 - G43.009) Plan Of Treatment Medication Medication Name Sig Start Date Stop Date Notes Djuymcsngq-YEFK-Glwjnizk 50-325-40 MG 1 tablet Orally twice daily, for 30 days 08/25/2024 Progress Notes * Mohamud GARZONOB:1965 (59 yo F)Acc No.[id number]:08/24/2024 Patient: Leatha HUMPHREY Sharonda :1965 A ge:59 Y S ex:Female Address:[address] [place] [address] * Refills Refill Vgzdvyklco-HGLC-Jgpwwwqc Tablet, 50-325-40 MG, Orally, 24, 1 tablet, twice daily,, 30 days, Refills=3 * true * Date: Generated for Edith enriquez/Emeli/Ty on: 0 09/18/2024 01:06 PM TELEVISION REPAIRMAN
--- OUTSIDE RECORDS SUMMARY | 2024-09-18 13:06 | XMS_ITS | Clinical Summary ---
Author Organization [facility] Address [address] [address] Phone Care Team Providers Care Mangle Tender Name Role Phone Unavailable Primary Care Provider Unavailabl e Social History Tobacco Use Types Packs/Day Years Used Date Smoking Tobacco: Never Assessed Comments Unknown Sex and Gender Information Value Date Recorded Sex Assigned at Not on file Legal Sex Female 8:30 AM CDT Gender Identity Not on file Sexual Orientation Not on file Plan of Treatment Health Maintenance Due Date Last Done Comments Hepatitis C Virus (HCV) Screening 1965 Hepatitis B Immunization (1 of 3 - 19+ 3-dose series) 1984 Pap Smear 1986 Cervical Cancer Screening (CCS) 1995 HPV/Cotest 1995 Colonoscopy 2010 Colorectal Cancer Screening 2010 Cologuard 2015 Immunochemical Fecal Occult Blood 2015 Mammogram 2015 Pneumococcal Immunization (5 0+ years) (1 of 1 - PCV) 2015 Zoster Immunization (1 of 2) 2015 Influenza Immunization (#1) 2024 05/30/2018 SARS-COV-2 Immunization ( season) 2024 06/07/2021, 09/21/2020, 08/24/2020 Respiratory Syncytial Virus (RSV) Immunization (Adult) (1 - 1-dose 75+ series) 2040 DTaP/Tdap/Td Immunization Discontinued 08/28/2013 TdaP Immunization Completed 08/28/2013 Meningococcal Immunization (ACWY) Aged Out No longer eligible based on patient's age to complete this topic Pneumococcal Immunization Combined Aged Out No longer eligible based on patient's age to complete this topic Rotavirus Immunization Aged Out No lo nger eligible based on patient's age to complete this topic Insurance [facility]
--- OUTSIDE RECORDS SUMMARY | 2024-09-18 13:07 | XMS_ITS | Clinical Summary ---
Author Organization [facility] [place] Address [address] [place] [address] Care Team Providers Care Police Artist Name Role Phone Josie Vega MD Primary Care Provider [phone] Allergies No known active allergies Medications LORazepam (ATIVAN) 1 mg tablet 04/04/20 20 Active cholecalciferol (VITAMIN D-3) 400 unit capsule Act lisa polyethylene glycol (MIRALAX) 17 gram packetIndication s:constipation Take 1 packet (17 g total) by mouth daily Active butalbital-aceta minophen-caffein e (ESGIC) 50-325-40 mg per tablet Take 2 tablets by mouth daily as needed for headaches (Migraines) 30 tablet 5 09/30/19 23 Active ascorbic acid (ascorbic acid with gurjit hips) 500 mg tablet,chewable daily Acti ve Lexapro 10 mg tablet daily 07/29/20 23 Active estradiol-noreth indrone (ACTIVELLA) 0.5-0.1 mg per tablet 09/02/19 24 Active Ajovy Autoinjector 225 mg/1.5 mL auto-injector subcutaneous auto-injector 1 injection subcutaneously once a month 08/19/19 24 Active magnesium oxide 500 mg capsule Take by mouth A ctive fexofenadine (JAVAN) 180 mg tabletIndication s:Allergy, initial encounter Take 1 tablet (180 mg total) by mouth daily 30 tablet 11 01/13/20 24 025 Active fluticasone propionate (FLONASE) 50 mcg/actuation nasal sprayIndications :Allergy, initial encounter Administer 2 sprays into each nostril daily 16 g 6 01/13/20 24 Active cyanocobalamin (Vitamin B-12) 1,000 mcg tablet daily Act lisa Active Problems Problem Noted Date Diagnosed Date RENAE (obstructive sleep apnea) 02/16/2024 Assessment & Plan (02/16/2024 10:18 AM CDT): Due to the patient not feeling like there is enough pressure on occasion, I have increased his CPAP pressure to 7-20 cm water pressure. I did instruct the patient to call into the office if the pressure is not adequate or needs readjusted. I have also provided the patient an F30 I mask. JENNIFER Viramontes. The patient will continue with her allergy medications as needed Primary insomnia 10/22/2023 Assessment & Plan (02/16/2024 10:16 AM CDT): Improving with the use of CPAP Assessment & Plan (10/22/2023 9:35 AM CDT): The problem of recurrent insomnia is discussed. Avoidance of caffeine sources is strongly encouraged. Sleep restriction and Sleep hygiene issues are reviewed.The patient and I also discussed the gold standard of insomnia is cognitive behavior therapy. I have also provided the patient with 2 pamphlets in regards to sleeping better insomnia as written by the [employer]. I encouraged the patient to keep a journal and to get out of bed if mind is racing and unable to get back to sleep. The patient and I also discussed the decrease of lighting in the evening hours and turning off electronic devices. The use of sedative hypnotics for temporary relief is appropriate; we discussed the addictive nature of these drugs. Cognitive behavior therapy was reviewed in depth. ' Migraine without aura and wi thout status migrainosus, not intractable 03/10/2022 Muscle tension headache 04/16/2020 Assessment & Plan (03/10/2021 9:53 AM CDT): Patient has had reduction in headache frequency and severity taking nortriptyline 50 mg HS for headache prophylaxis along with Fioricet for symptomatic breakthrough. She has good tolerability and is pleased with her clinical response to date. I have renewed both medications as presently prescribed and she will follow-up in neurology clinic in a year. Assessment & Plan (04/16/2020 4:19 PM CDT): Patient is currently using nortriptyline 50 mg HS for tension-type headache prophylaxis and Fioricet 2 tablets at the onset of the headache for symptomatic breakthrough with good reliability and less than 5 headache days per month. She does not have to use more than 2 Fioricet tablet any given day for the headache. She has no tolerability issues with medication and is need of refill. I have renewed both her nortriptyline and Fioricet as scheduled, and I plan on seeing her back on a yearly or as needed basis. Resolved Problems Problem Noted Date Diagnosed Date Resolved Date Snoring 10/22/2023 02/16/2024 Assessment & Plan (10/22/2023 9:36 AM CDT): Due to the snoring, hypersomnia, insomnia, and frequent headaches, I have ordered the patient in home nocturnal polysomnogram as required by her insurance. The procedure detailed in depth. Patient would be agreeable Surgical History Surgery Date Site/Laterality Comments GALLBLADDER SURGERY Medical History Medical History Date Comments Migraines Anxiety Family History Medical History Relation Name Comments No Known Problems Brother Diabetes Father Hypertension Father Lung cancer Father Hypertension Mother Hypertension Sister Relation Name Status Comments Brother Alive Father Mother Alive Sister Alive Social History Tobacco Use Types Packs/Day Years Used Date Smoking Tobacco: Never Smokeless Tobacco: Never Tobacco Cessation:Counseling Given: Not Answered AUDIT-C Answer Date Recorded Q1: How often do you have a drink containing alc ohol? Monthly or less 03/10/2022 Q2: How many drinks containi ng alcohol do you have on a typical day when you are drinking? 1 or 2 03/10/2022 Q3: How often do you have si x or more drinks on one occasion? 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 Gender Identity Not on file Sexual Orientation Not on file Obstetrics History Last Filed Vital Signs Vital Sign Reading Time Taken Comments Blood Pressure 118/74 02/16/2024 9:55 AM CDT Pulse 62 02/16/2024 9:55 AM CDT Temperature 36.1 C (97 F) 10/22/2023 8:49 AM CDT Respiratory Rate 18 02/16/2024 9:55 AM CDT Oxygen Saturation 98% 02/16/2024 9:55 AM CDT Inhaled Oxygen Concentration - - Weight 73 kg (161 lb) 02/16/2024 9:55 AM CDT Height 172.7 cm (5' 8 ) 02/16/2024 9:55 AM CDT Body Mass Index 24.48 02/16/2024 9:55 AM CDT Plan of Treatment Health Maintenance Due Date Last Done Comments Breast Cancer Screening-Mammogram 1965 Cervical Cancer Screening 1965 Colon Cancer Screening-Colonoscopy 1965 Depression Screening 1965 Hepatitis B Screening 1983 Regular Well Visit/Exam 18-64 1983 Zoster Vaccine (1 of 2) 2015 DTaP/Tdap/Td Vaccine (2 - Td or Tdap) 08/28/2023 08/28/2013 Influenza Vaccine (#1) 2024 9, 05/30/2018, 04/28/2017 Hepatitis C Screening Completed 03/28/2021 Pneumococcal vaccine <65 Aged Out No longer eligible based on patient's age to complete this topic Procedures Procedure Name Priority Date/Time Associated Diagnosis Comments HEPATITIS C ANTIBODY Routine 03/28/2021 8:12 AM CDT Encounter for donation of kidney from Last 3 Months or Most Recently Relevant to Health Maintenance Results * Hepatitis C antibody (03/28/2021 8:12 AM CDT) Hep C Ab Nonreactive Nonreactive [facility] Comment:Antibodies to HCV no t detected. Does NOT exclude the possibility of recent exposure to HCV. Blood 03/28/2021 8:12 AM CDT 03/28/2021 8:22 AM CDT Silvio Grover MD LAB MICROBIOLOGY - GENERAL ORDYasmine DIAZ Edited Result - Final AGA [facility] [place] [address] from Last 3 Months or Most Recently Relevant to Health Maintenance Insurance [id number] [place] [address] [id number] [place] [address] Care Teams Police Artist Relationship Specialty Start Date End Date Josie Vega MD [address] [place] [address] PCP - General Internal Medicine 02/23/20
--- OUTSIDE RECORDS SUMMARY | 2024-09-18 13:07 | XMS_ITS | Referral Summary ---
Author Organization [facility] [place] Address [address] [place] [address] Care Team Providers Care Video Control Operator Name Role Phone Josie Vega MD Primary Care Provider [phone] Allergies No known active allergies Medications LORazepam [...] sleeping better insomnia as written by the [employer]. I encouraged the [...] detailed in depth. 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 Does NOT exclude the possibility of recent exposure to HCV. Blood 03/28/2021 8:12 AM CDT 03/28/2021 8:22 AM CDT Silvio Grover MD LAB MICROBIOLOGY - GENERAL ORDYasmine DIAZ Edited Result - Final AGA [facility] Department [place] [address] from Last 3 Months or Most Recently Relevant to Health Maintenance Insurance [employer] [facility] Care Teams Video Control Operator Relationship Specialty Start Date End Date Josie Vega MD [address] [place] [address] PCP - General Internal Medicine 02/23/20
== END 2024-09-18 12:55 | disposition home or self-care (01) ==
LOC: CHSIMG 12:55
PROVIDERS: PCP Internal Medicine; Visit Provider Obstetrics & Gynecology
DX: Z12.31 Encounter for screening mammogram for malignant neoplasm of breast (principal)
CPT/HCPCS: 77063; 77067

== ENCOUNTER 2025-05-09 07:00 | Outpatient (RCR) | payer OTHER, SELFPAY ==
--- NOTE | 2025-04-20 12:07 | OPREHPOC ---
Outpatient Therapy Plan of Care This is a Multidisciplinary Plan of Care that may contain components documented by all disciplines (PT, OT, and ST.) PT Problem 1 PT Problem #1 Knowledge Deficit PT Goal 1 Goal / Goal Update independent and compliant with HEP Target Visit 6 PT Problem 2 PT Problem #2 Pain PT Goal 1 Goal / Goal Update decrease pain at worst to 2/10 or less in the R buttock/hip Target Visit 12 PT Problem 3 PT Problem #3 Impaired Flexibility PT Goal 1 Goal / Goal Update mild or less R piriformis mm tightness 10 degrees or less bilat hamstrings tightness Target Visit 12 PT Problem 4 PT Problem #4 Impaired Strength PT Goal 1 Goal / Goal Update 4+/5 or better overall bilateral hip strength patient to display 4/5 or better core strength Target Visit 12 PT Problem 5 PT Problem #5 Impaired Functional Mobility PT Goal 1 Goal / Goal Update LEFS to display 30% or less functional deficits patient to sleep through the night 5 nights a week or better patient to tolerate sitting for 1 hour without increased pain/symptoms patient to tolerate sitting on floor for 30 minutes or more to play with grandson Target Visit 12
--- NOTE | 2025-04-20 12:07 | PTOPEVAL1 ---
Assessment and note entered by JT File, PT Evaluation Information Assessment Status Evaluation Diagnosis R hip, buttock, lower back pain ICD-10 Condition Codes (PT) Pain in low back M54.50,Radiculopathy, lumbar region M54.16,Pain in right hip M25.551 Onset 04/16/25 Subjective Information patient reports she has noticed pain in the R lower back, R buttock, and R lateral hip for about 9 months. she reports it has gotten progressively worse. she reports she noticed it first when trying to sit on the floor and play with her grandchildren. she reports she has increased pain with sitting and sleeping. she reports she is a side sleeper, and is woken up by pain when she rolls to either side. she reports the pain goes from the r lower back down to the back of the R mid thigh. Reported Pain Level Pain Score 5: Self Report Assessment PT Clinical Summary mrs. felder presents to skilled PT services for evaluation and treatement of R buttock and lateral hip pain. she reports also haveing R lower back pain. she displays signs and symptoms indiciated of R sciatica and greater trochanteric bursitis. she displays mm tightness of the R piriformis, bilateral hip weakness, and deficits in sitting and side lying tolerance. continued skilled PT is indicated to improve her objective/functional deficits and return to her prior level functional activity performance/quality of life. Plan of Care Interventions Electrical Stimulation,Gait Training,Hot Pack/Cold Pack,Manual Therapy,Neuro Re-education,Patient/ Caregiver Education,Therapeutic Activities, Therapeutic Exercise,Other Other Interventions dry needling PT Services Indicated Yes Treatment Frequency and 3x weekly for 12 visits Duration These treatments will address the objective and functional deficits as defined above. The patient will be advanced safely and appropriately in order for the patient to progress towards his/her prior level of function. Additional exercises will be introduced and as well as a comprehensive home exercise program upon discharge, if needed, ?to ensure carryover of functional gains achieved in the clinic. This treatment plan has been reviewed and agreement upon by the patient.
--- NOTE | 2025-05-21 09:02 | OPREHPOC ---
Outpatient Therapy Plan of Care This is a Multidisciplinary Plan of Care that may contain components documented by all disciplines (PT, OT, and ST.) PT Problem 1 PT Problem #1 Knowledge Deficit PT Goal 1 Goal / Goal Update independent and compliant with HEP Target Visit 6 Progress Met PT Problem 2 PT Problem #2 Pain PT Goal 1 Goal / Goal Update decrease pain at worst to 2/10 or less in the R buttock/hip Target Visit 12 Progress Not Met PT Problem 3 PT Problem #3 Impaired Flexibility PT Goal 1 Goal / Goal Update mild or less R piriformis mm tightness -met 10 degrees or less bilat hamstrings tightness Target Visit 12 Progress Partially Met PT Problem 4 PT Problem #4 Impaired Strength PT Goal 1 Goal / Goal Update 4+/5 or better overall bilateral hip strength -not met patient to display 4/5 or better core strength Target Visit 12 Progress Not Met PT Problem 5 PT Problem #5 Impaired Functional Mobility PT Goal 1 Goal / Goal Update LEFS to display 30% or less functional deficits - progress patient to sleep through the night 5 nights a week or better patient to tolerate sitting for 1 hour without increased pain/symptoms -not met patient to tolerate sitting on floor for 30 minutes or more to play with grandson -not met Target Visit 12
--- NOTE | 2025-05-21 09:02 | PTOPPROG ---
Assessment and note entered by Joyce Britt, PT Evaluation Information Assessment Status Progress Diagnosis R hip, buttock, lower back pain ICD-10 Condition Codes (PT) Pain in low back M54.50,Radiculopathy, lumbar region M54.16,Pain in right hip M25.551 Onset 04/16/25 Subjective Information Pt reports she was in more pain over the weekend and that she overdid it this weekend by doing a lot of lifting. She reports her pain has subsided and is only 2/10 currently. She reports sitting for prolonged periods and lifting continue to worsen her pain, and she cannot sit for more than 30 minutes on a car ride to [place]. Assessment PT Clinical Summary Mrs. Garzon has attended 10 skilled PT visits for R side low back and hip pain. She demonstrates progress in LEFS score and demonstrates improved piriformis mm flexibility, but she continues to have increased pain with sitting for prolonged periods and lifting, and she continues to demonstrate hip mm weakness. Continued skilled PT intervention is indicated to make further progress toward goals. Plan of Care Interventions Electrical Stimulation,Gait Training,Hot Pack/Cold Pack,Manual Therapy,Neuro Re-education,Patient/ Caregiver Education,Therapeutic Activities, Therapeutic Exercise,Other Other Interventions dry needling PT Services Indicated Yes Treatment Frequency and Continue per POC Duration These treatments will address the objective and functional deficits as defined above. The patient will be advanced safely and appropriately in order for the patient to progress towards his/her prior level of function. Additional exercises will be introduced and as well as a comprehensive home exercise program upon discharge, if needed, ?to ensure carryover of functional gains achieved in the clinic. This treatment plan has been reviewed and agreement upon by the patient.
--- NOTE | 2025-05-25 09:00 | OPREHPOC ---
Outpatient Therapy Plan of Care This is a Multidisciplinary Plan of Care that may contain components documented by all disciplines (PT, OT, and ST.) PT Problem 1 PT Problem #1 Knowledge Deficit PT Goal 1 Goal / Goal Update independent and compliant with HEP Target Visit 6 Progress Met PT Problem 2 PT Problem #2 Pain PT Goal 1 Goal / Goal Update decrease pain at worst to 2/10 or less in the R buttock/hip Target Visit 12 Progress Not Met PT Problem 3 PT Problem #3 Impaired Flexibility PT Goal 1 Goal / Goal Update mild or less R piriformis mm tightness -met 10 degrees or less bilat hamstrings tightness -not met Target Visit 12 Progress Partially Met PT Problem 4 PT Problem #4 Impaired Strength PT Goal 1 Goal / Goal Update 4+/5 or better overall bilateral hip strength -met patient to display 4/5 or better core strength - not met Target Visit 12 Progress Partially Met PT Problem 5 PT Problem #5 Impaired Functional Mobility PT Goal 1 Goal / Goal Update LEFS to display 30% or less functional deficits - not met patient to sleep through the night 5 nights a week or better -met patient to tolerate sitting for 1 hour without increased pain/symptoms -met patient to tolerate sitting on floor for 30 minutes or more to play with grandson -not met Target Visit 12 Progress Partially Met
--- NOTE | 2025-05-25 09:01 | PTOPPROG ---
Assessment and note entered by Joyce Britt, PT Evaluation Information Assessment Status Progress Diagnosis R hip, buttock, lower back pain ICD-10 Condition Codes (PT) Pain in low back M54.50,Radiculopathy, lumbar region M54.16,Pain in right hip M25.551 Onset 04/16/25 Subjective Information Sharonda reports feeling like she's made a lot of progress in therapy. She feels stronger and her pain isn't as severe. She does note increased soreness in her R low back and her R shoulder blade from cleaning her cabinets yesterday. She reports her pain typically only increases if she does a lot of heavy work such as lifting or working on her cabinets. She denies difficulty with standing for prolonged periods and can sleep through the night without interference. She does still get increased pain when sitting for prolonged periods but this has improved. She has been independent with her HEP and feels good enough to continue on her own, and she plans to come back to therapy if her pain worsens again. Assessment PT Clinical Summary Mrs. Garzon has attended 12 skilled PT visits addressing low back and R hip pain. She demonstrates excellent improvements in hip and core strength and also reports improved sleep quality. She is able to stand for prolonged periods of time without difficulty and while her sitting tolerance has improved she still develops increased pain when sitting for more than 30 minutes. She has partially met all therapeutic goals at this time and has been independent with her HEP. She feels good enough to keep rehabing on her own at this time, so we will hold therapy and resume in the future if her symptoms worsen again . Plan of Care Interventions Electrical Stimulation,Gait Training,Hot Pack/Cold Pack,Manual Therapy,Neuro Re-education,Patient/ Caregiver Education,Therapeutic Activities, Therapeutic Exercise,Other Other Interventions dry needling PT Services Indicated Yes Treatment Frequency and Hold PT at this time Duration These treatments will address the objective and functional deficits as defined above. The patient will be advanced safely and appropriately in order for the patient to progress towards his/her prior level of function. Additional exercises will be introduced and as well as a comprehensive home exercise program upon discharge, if needed, ?to ensure carryover of functional gains achieved in the clinic. This treatment plan has been reviewed and agreement upon by the patient.
== END 2025-07-19 23:59 | disposition home or self-care (01) ==
LOC: CHSPT 07:00
PROVIDERS: PCP Internal Medicine; Visit Provider Internal Medicine
DX: M53.3 Sacrococcygeal disorders, not elsewhere classified (principal)
CPT/HCPCS: 97110; 97112; 97140; 97161; 97530